=== PATIENT | female | born 1980 | race Hispanic/Latino ===

== ENCOUNTER 2018-07-30 02:46 | Emergency (ER) | payer MEDICARE ==
[2018-07-30] MEDS ORDERED: ASPIRIN PO ONE (03:08)
[2018-07-30] MEDS ORDERED: ALUM-MAG HYDROX-SIMETH 200-200-20MG/5ML PO ONE (03:21)
[2018-07-30] MEDS ORDERED: PEPCID PO ONE (03:21)
[2018-07-30] MEDS ORDERED: NITROSTAT SL PRN (03:21)
[2018-07-30] MEDS ORDERED: TYLENOL PO ONE (03:21)
[2018-07-30] MEDS ORDERED: NACL 0.9% 500 ML 500 ML IV ONE (03:21)
--- NOTE | 2018-07-30 03:22 | Emergency Department Report ---
ED Chest Pain HPI - General Chief Complaint: Chest Pain Stated Complaint: CHEST PAIN Time Seen by Provider: 07/30/18 03:14 Source: patient, EMS (ems notes not available at time of chart dictation), RN notes reviewed, old records reviewed Mode of arrival: Stretcher Limitations: Other (patient is a poor historian) - History of Present Illness Initial Comments: Past medical history: Obesity, self-mutilation, asthma, seizure disorder, hypothyroidism, cholecystectomy, appendectomy This is a 38-year-old female who is not known to this provider previously, currently a psychiatric patient at a local psychiatric facility on a psychiatric hold, brought to the hospital by emergency medical services for evaluation of chest pain. The patient reports that she is not , reports that the chest pain started a few hours prior to presentation, essential, radiates to the back, unassociated with shortness of breath. There is no vomiting, diaphoresis, recent aspirin use, or DVT, pulmonary embolus risk factors. The pain also increases with palpation of the chest wall. The patient reports that she is sleepy and went to go to sleep during her history and physical. MD Complaint: chest pain -: Gradual Onset: during rest Pain Location: substernal, left chest, right chest Pain Radiation: back Severity: mild, moderate Severity scale (0 -10): 8 Quality: aching Consistency: intermittent Improves With: rest Worsens With: palpation Aspirin use within the Past 7 Days: (0) No - Related Data On Oral Contraceptives: No Allergies Allergy/AdvReac Type Severity Reaction Status Date / Time aspirin Allergy Swelling Verified 07/30/18 02:58 codeine Allergy Swelling Verified 07/30/18 02:58 Penicillins Allergy Swelling Verified 07/30/18 02:58 Heart Score - HEART Score History: Moderately suspicious EKG: Non-specific Age: < 45 Risk factors: 1-2 risk factors Troponin: < normal limit HEART Score: 3 - Critical Actions Critical Actions: 0-3 pts:0.9-1.7%risk of adverse cardiac event.Candidate for discharge ED Review of Systems ROS: Stated complaint: CHEST PAIN Other details as noted in HPI Constitutional: denies: fever Eyes: denies: vision change ENT: denies: epistaxis Respiratory: shortness of breath Cardiovascular: chest pain Gastrointestinal: denies: hematemesis, melena Genitourinary: denies: dysuria Musculoskeletal: denies: arthralgia Skin: lesions Neurological: weakness Psychiatric: denies: suicidal thoughts ED Past Medical Hx - Past Medical History Previous Medical History?: Yes Hx Seizures: Yes Hx Psychiatric Treatment: Yes (self mutilation,) Hx Asthma: Yes Additional medical history: Hypothyroid - Surgical History Past Surgical History?: Yes Hx Cholecystectomy: Yes Hx Appendectomy: Yes - Social History Smoking Status: Current Every Day Smoker Substance Use Type: None ED Physical Exam - General Limitations: No Limitations General appearance: alert, obese - Head Head exam: Present: atraumatic, normocephalic - Eye Eye exam: Present: normal appearance, EOMI. Absent: nystagmus - ENT ENT exam: Present: normal exam, normal orophraynx, mucous membranes moist, normal external ear exam - Neck Neck exam: Present: normal inspection, full ROM. Absent: tenderness, meningismus - Respiratory Respiratory exam: Present: normal lung sounds bilaterally, chest wall tenderness. Absent: respiratory distress - Cardiovascular Cardiovascular Exam: Present: normal rhythm, tachycardia, normal heart sounds. Absent: systolic murmur, diastolic murmur, rubs, gallop - GI/Abdominal GI/Abdominal exam: Present: soft. Absent: distended, tenderness, guarding, rebound, rigid, pulsatile mass - Extremities Exam Extremities exam: Present: normal inspection, full ROM, other (2+ pulses noted in the bilateral upper, lower extremities. Compartments soft. No long bony tenderness. The pelvis is stable.). Absent: pedal edema, joint swelling, calf tenderness - Back Exam Back exam: Present: normal inspection, full ROM. Absent: tenderness, CVA tenderness (R), paraspinal tenderness, vertebral tenderness - Neurological Exam Neurological exam: Present: alert, other (Extraocular movements intact. Tongue midline. No facial droop. Facial sensation intact to light touch in the V1, V2, V3 distribution bilaterally. 5 and 5 strength in 4 extremities.. Sensation is intact to light touch in 4 extremities.). Absent: motor sensory deficit - Psychiatric Psychiatric exam: Present: flat affect - Skin Skin exam: Present: warm, other (skin excoriations noted, with no redness, pus or streaking) ED Course Vital Signs 07/30/18 07/30/18 07/30/18 03:03 03:42 05:19 Temperature 98.4 F Pulse Rate 107 H 103 H 92 H Respiratory 18 19 Rate Blood Pressure 116/54 128/94 [Left] O2 Sat by Pulse 99 100 Oximetry - Reevaluation(s) Reevaluation #1: 07/30/18 04:20 Differential diagnosis, including not limited to: GERD, gastritis, hiatal hernia, pulmonary embolus, pneumonia, acute coronary syndrome, pneumothorax Assessment and plan: 38-year-old female with chest pain. The chest pain is reproducible and she is afebrile with reassuring vital signs with the exception of tachycardia but no hypoxia. The patient is a poor historian. Her EKG is nonspecific, without prior for comparison. Tachycardia improving, and the patient is sleeping comfortably in the stretcher. CT scan of the chest is pending at this time. The patient reports that she is not . X-ray of the chest is negative for acute disease. Reevaluation #2: 07/30/18 05:22 Troponin negative 2. EKG unchanged 2. CT scan of the chest is negative for acute disease. Tachycardia resolved. Sleeping comfortably in stretcher. Patient suitable to follow up with an outpatient assembler brazer complete risk stratification. SANJIV score - Sanjiv Score Age > 65: (0) No Aspirin use within the Past 7 Days: (0) No 3 or more CAD Risk Factors: (0) No 2 or more Angina events in past 24 hrs: (0) No Known CAD with more than 50% Stenosis: (0) No Elevated Cardiac Markers: (0) No ST Deviation Greater than 0.5mm: (0) No SANJIV Score: 0 ED Medical Decision Making - Lab Data Result diagrams: 07/30/18 03:13 07/30/18 03:13 Vital Signs 07/30/18 07/30/18 03:03 03:42 Temperature 98.4 F Pulse Rate 107 H 103 H Respiratory 18 Rate Blood Pressure 116/54 [Left] O2 Sat by Pulse 99 Oximetry Lab Results 07/30/18 07/30/18 Range/Units 03:13 03:13 WBC 6.5 (4.5-11.0) K/mm3 RBC 4.98 (3.65-5.03) M/mm3 Hgb 14.0 (10.1-14.3) gm/dl Hct 42.1 (30.3-42.9) % MCV 85 (79-97) fl MCH 28 (28-32) pg MCHC 33 (30-34) % RDW 14.8 (13.2-15.2) % Plt Count 260 (140-440) K/mm3 Lymph % (Auto) 22.1 (13.4-35.0) % [place] % (Auto) 9.0 H (0.0-7.3) % Eos % (Auto) 2.8 (0.0-4.3) % Baso % (Auto) 0.8 (0.0-1.8) % Lymph # 1.4 (1.2-5.4) K/mm3 [place] # 0.6 (0.0-0.8) K/mm3 Eos # 0.2 (0.0-0.4) K/mm3 Baso # 0.0 (0.0-0.1) K/mm3 Seg Neutrophils % 65.3 (40.0-70.0) % Seg Neutrophils # 4.3 (1.8-7.7) K/mm3 Sodium 139 (137-145) mmol/L Potassium 3.6 (3.6-5.0) mmol/L Chloride 103.9 (98-107) mmol/L Carbon Dioxide 23 (22-30) mmol/L Anion Gap 16 mmol/L BUN 9 (7-17) mg/dL Creatinine 0.6 L (0.7-1.2) mg/dL Estimated GFR > 60 ml/min BUN/Creatinine Ratio 15 % Glucose 100 (65-100) mg/dL Calcium 8.8 (8.4-10.2) mg/dL Troponin T < 0.010 (0.00-0.029) ng/mL - EKG Data 07/30/18 04:20 Sinus tachycardia, normal axis, QTC 520 ms, low voltage, motion artifact, not consistent with ST elevation myocardial infarction. No prior EKG available for comparison. - Radiology Data Radiology results: report reviewed, image reviewed X-ray of the chest is negative for acute disease. CT scan of the chest: Critical care attestation.: If time is entered above; I have spent that time in minutes in the direct care of this critically ill patient, excluding procedure time. ED Disposition Clinical Impression: Chest wall pain Disposition: [id number]/[id number] PSY HOSP/PSY UNIT Is pt being admited?: No Does the pt Need Aspirin: No Condition: Stable Instructions: Chest Pain (ED), Costochondritis (ED) Additional Instructions: Continue outpatient medications. Follow up with a assembler brazer within the next 3-5 days. Return to the emergency room right away with new, worsening or different symptoms. Avoid consumption of Motrin, ibuprofen, Naprosyn, Aleve. Avoid consumption of heavy, spicy foods. Referrals: [facility] [Provider Group] - 3-5 Days [facility] [Provider [facility]] - 3-5 Days
[2018-07-30 03:26] LABS: Basophils % (Auto) 0.8 % (0.0-1.8); Eosinophils # (Auto) 0.2 K/mm3 (0.0-0.4); Eosinophils % (Auto) 2.8 % (0.0-4.3); Hematocrit 42.1 % (30.3-42.9); Lymphocytes # (Auto) 1.4 K/mm3 (1.2-5.4); Lymphocytes % (Auto) 22.1 % (13.4-35.0); Mean Corpuscular HGB Conc 33 % (30-34); Mean Corpuscular Volume 85 fl (79-97); Monocytes # (Auto) 0.6 K/mm3 (0.0-0.8); Platelet Count 260 K/mm3 (140-440); Red Blood Count 4.98 M/mm3 (3.65-5.03); Red Cell Distribution Width 14.8 % (13.2-15.2)
[2018-07-30 03:47] LABS: BUN/Creatinine Ratio 15; Blood Urea Nitrogen 9 mg/dL (7-17); Calcium 8.8 mg/dL (8.4-10.2); Hemolysis Index 16
--- NOTE | 2018-07-30 03:53 | XRay Report ---
FINAL REPORT PROCEDURE: XR CHEST 1V AP TECHNIQUE: Chest radiograph anteroposterior view. CPT 51997 HISTORY: cp dyspnea COMPARISON: No prior studies are available for comparison. FINDINGS: Heart: Normal. Mediastinum/Vessels: Normal. Lungs/Pleural space: Normal. Bony thorax: No acute osseous abnormality. Life support devices: None. IMPRESSION: No acute cardiopulmonary abnormality.
--- NOTE | 2018-07-30 05:17 | Cat Scan Report ---
FINAL REPORT PROCEDURE: CT ANGIO CHEST TECHNIQUE: Computerized axial tomographic angiography of the chest and pulmonary arteries was perfor med after the IV injection of iodinated nonionic contrast. The image data was postprocessed using max imum intensity projection (MIP) and 2-dimensional multiplanar reformatted (MPR) techniques. The exami nation is specifically tailored to the evaluation of the pulmonary arteries per clinical request. HISTORY: Short of breath 786.09, chest pain 786.50, cp dyspnea COMPARISON: No prior studies are available for comparison. FINDINGS: Heart and pericardium: Normal. Thoracic aorta: There is no thoracic aortic aneurysm or dissection. Pulmonary vasculature: Normal. No pulmonary emboli. Lymph nodes: No enlarged thoracic lymph nodes. Lungs: There is no infiltrate.. Pleural space: No effusion, thickening, or pneumothorax. Musculoskeletal structures: No significant abnormality. Upper abdominal structures: No significant abnormality. IMPRESSION: There is no pulmonary embolism.
[2018-07-30 05:19] VITALS: BP 128/94
== END 2018-07-30 06:10 ==
LOC: ED 02:46
DX: R07.89 Other chest pain (principal); J45.909 Unspecified asthma, uncomplicated; E03.9 Hypothyroidism, unspecified; F17.200 Nicotine dependence, unspecified, uncomplicated; Z90.49 Acquired absence of other specified parts of digestive tract; Z88.0 Allergy status to penicillin; Z88.5 Allergy status to narcotic agent; Z88.8 Allergy status to other drugs, medicaments and biological substances
CPT/HCPCS: 36415; 71045; 71275; 80048; 84484; 85025; 93005; 93010; 99285; Q9967